=== PATIENT | male | born 1945 | race Caucasian/White ===

== ENCOUNTER → 2018-05-11 10:00 | Outpatient (CLI) | payer MEDICARE, OTHER, SELFPAY ==
[2018-05-11 10:35] LABS: Add Manual Diff / Slide Review NO; Eosinophils Percent Auto 2.1 % (2-4); Hemoglobin 14.4 g/dL (13.5-17.5); Lymphocytes Percent Auto 25.7 % (25-40); Mean Corpuscular HGB Conc 33.4 % (30-36); Mean Corpuscular Hemoglobin 29.6 PG (26-34); Mean Corpuscular Volume 88.7 fL (80-100); Monocytes Percent Auto 9.1 % (3-14); Neutrophils Absolute Auto 3500 /uL (3000-5900); Neutrophils Percent Auto 62.1 % (50-75); Platelet Count 249 X10^3/uL (150-400); Red Blood Cell Count 4.85 X10^6/uL (4.5-5.9); Red Cell Distribution Width 13.9 % (11.6-14.8); White Blood Cell Count 5.6 X10^3/uL (4.5-11.0)
[2018-05-11 10:49] LABS: Alanine Aminotransferase 40 IU/L (21-72); Albumin Globulin Ratio 1.3 (1.0-2.8); Alkaline Phosphatase 74 U/L (38-126); Aspartate Aminotransferase 38 IU/L (17-59); BUN Creatinine Ratio 17.1 (6-22); Bilirubin Total 0.5 mg/dL (0.2-1.3); Blood Urea Nitrogen 12 mg/dL (9-20); Calcium 8.9 mg/dL (8.4-10.2); Carbon Dioxide 32 mmol/L (22-32); Chloride 102 mmol/L (98-107); Cholesterol 171 mg/dL (140-199); Estimated Glomerular Filt Rate > 60.0 mL/min (>60); Globulin 3.1 g/dL (1.7-4.1); Glucose 99 mg/dL (80-110); HDL Cholesterol 58 mg/dL (40-60); HEMOLYSIS < 15 (0-50); LDL Cholesterol Calculated 93 mg/dL (<100); Potassium 4.6 mmol/L (3.4-5.1); Sodium 143 mmol/L (137-145); Total Protein 7.1 g/dL (6.3-8.2); Triglycerides 101 mg/dL (35-150)
[2018-05-11 11:18] LABS: Prostate Specific Antigen Scrn 3.41 ng/mL (0.1-4.0)
[2018-05-11 11:28] LABS: Thyroid Stimulating Hormone 1.04 uIU/mL (0.47-4.68)
== END ==
PROVIDERS: PCP Family Medicine; Visit Provider Family Medicine
DX: Z13.220 Encounter for screening for lipoid disorders (principal); Z12.5 Encounter for screening for malignant neoplasm of prostate
CPT/HCPCS: 36415; 80053; 80061; 84443; 85025; G0103

== ENCOUNTER → 2019-02-20 11:32 | Outpatient (CLI) | payer MEDICARE, OTHER, SELFPAY ==
[2019-02-20 13:36] LABS: BUN Creatinine Ratio 13.3 (6-22); Blood Urea Nitrogen 12 mg/dL (9-20); Calcium 9.9 mg/dL (8.4-10.2); Carbon Dioxide 30 mmol/L (22-32); Chloride 97 mmol/L (98-107); Estimated Glomerular Filt Rate > 60.0 mL/min (>60); Glucose 112 mg/dL (80-110); HEMOLYSIS < 15 (0-50); Potassium 4.9 mmol/L (3.4-5.1); Sodium 140 mmol/L (137-145)
== END ==
PROVIDERS: PCP Family Medicine; Visit Provider Family Medicine
DX: I10 Essential (primary) hypertension (principal)
CPT/HCPCS: 36415; 80048

== ENCOUNTER 2019-09-03 10:37 | Day surgery (SDC) | payer MEDICARE, OTHER, SELFPAY ==
[2019-08-29 15:16] VITALS: BMI 27.1
[2019-09-03] VITALS (11 sets, daily range): BP systolic 127–191; BP diastolic 71–99; PULSE 65–83; RESP 12–19; TEMP 36.3–36.8; O2SAT 94–97; BMI 27.1
--- NOTE | 2019-09-03 11:23 | PM.PREOP ---
Pre-operative Note Interval Note History & Physical reviewed/Exam performed by Physician: Yes Changes to H&P: No
[2019-09-03] MEDS: LACTATED RINGERS 1,000 ML 100 ML IV (11:34)
[2019-09-03] MEDS: CEFAZOLIN 2 GM/100 ML FROZ.PIGGY IV (11:44)
--- NOTE | 2019-09-03 12:11 | SUR.OPER ---
Supine on padded OR bed, head on pillow, arm padded and tucked at side, legs uncrossed, safety belt at thigh, tape over blanket over lower legs .
[2019-09-03] MEDS: BUPIVACAINE 0.25% (PF) VIAL 30 ML INJ (12:17)
--- NOTE | 2019-09-03 13:17 | PM.OP.1 ---
Operative Date/Time/Diagnoses Date of procedure: 09/03/19 Time of procedure: 13:17 Pre-op diagnosis: Recurrent right inguinal hernia Post-op diagnosis: same Procedure & Clinicians Procedure: Recurrent right laparoscopic inguinal hernia repair with mesh Same procedure as scheduled: Yes Indications: 74-year-old male with 2 previous open right inguinal hernia repairs presents with a recurrent right inguinal hernia. He elects for a laparoscopic right inguinal hernia repair with mesh. Surgeon: Clifton Correia Click Yes if Unassisted: Yes Anesthesia Type: General Operative Notes Findings: Right direct and indirect hernias Specimen(s): none sent Estimated Blood Loss (mL): 10 Procedure in detail: The patient was brought to the operating room and placed supine on the table. Bilateral sequential compression devices were applied. General anesthesia was induced and they were intubated with an endotracheal tube. They received 2 g acef prior to skin incision. They were prepped and draped in sterile fashion. A time out was performed to ensure the correct patient, procedure and necessary equipment within the operating room. The skin was infiltrated with 0.25% bupivicaine. A 1 cm supraumbilical midline incision was made. The umbilical stalk was elevated the fascia sharply incised and the abdomen entered traumatically. A 10mm balloon port was placed and pneumoperitoneum was established at 15mm Hg. Insepction of the abdomen demonstrated no evidence of injury upon entry. Two 5 mm ports were then placed under direct visualization in the right and left lower quadrant lateral to the rectus muscle. A right direct and indirect hernia were observed. The peritoneum 3 cm superior to the myopectineal orifice between the medial umbilical ligament and the anterior superior iliac spine was incised. The peritoneal flap was retracted and the preperitoneal tissue was dissected off the flap. This was continued until a cylinder of peritoneal tissue comprising the hernia sac extending into the inguinal canal was identified and sac reduced back into the peritoneal cavity. The vas deferens and spermatic vessels were identified protected. The peritoneum was dissected off the the spermatic vessels and fully exposed to the point where the vas deferens intersects with the medial umbilical ligament. The direct defect containing preperitoneal fat was reduced A Bard 3D Max mesh was then placed into the abdomen and positioned such that the myopectineal orifice was completely covered with good overlap on all sides. The mesh was anchored to the pubic tubercle and to Maulik?s ligament. The peritoneal flap was then repositioned back to its original position and tacks were used to anchor it in position such that no bowel could herniate into the preperitoneal space. The area was examined for hemostasis. No obvious left inguinal hernia was observed The 5mm trocars were removed under direct visualization and pneumoperitoneum was deflated through the umbilical trocar, The fascia at the umbilicus was closed with 0-Vicryl in figure of 8 fashion, skin closed with 4-0 Monocyl followed by Dermabond. The sponge and instrument count at the end of the case was correct. Both testicles were entirely within the scrotum at the end of the case. The patient emerged from anesthsia was extubated and transferred to recovery in stable condition.
[2019-09-03] MEDS: HYDROMORPHONE 2 MG INJ 0.5 MG IV (13:21)
--- NOTE | 2019-09-03 13:33 | SUR.PHASEI ---
Discussed pain control and methods of managing/preventing constipation; states that he doesn't want narcotics to cause constipation; plans to eat prunes. Applesauce given (denies nausea or light headedness).
[2019-09-03] MEDS: OXYCODONE/ACETAMINOPHEN 5/325 TABLET 1 TAB PO ×2 (13:43→14:22)
--- NOTE | 2019-09-03 13:46 | SUR.PHASEI ---
Dr. Correia spoke with patient. Oral Rx given after applesauce. Patient hesitant to take Rx; discussed need for pain control and to limit lifting weight.
--- NOTE | 2019-09-03 14:31 | SUR.PHASEII ---
Pt feels ready to go home, unable to reach ride (who had planned to return at 3:30)
--- NOTE | 2019-09-03 15:50 | SUR.PHASEII ---
1530 Pt taken to pharmacy in wheelchair to obtain medications. 1542 To car in wheelchair, home w/friend. Has belongings, meds, and ice pack. Repeatedly voices appreciation for care. Oriented, alert, Skin warm and dry, resp unlabored. Sites CDI
== END 2019-09-03 15:42 | disposition home or self-care (01) ==
PROVIDERS: Family Provider Family Medicine; PCP Family Medicine; Visit Provider Surgery
PROC: 0YQ54ZZ Repair Right Inguinal Region, Percutaneous Endoscopic Approach (ICD-10-PCS; CPT 49651; principal; 2019-09-03 12:15)
DX: K40.91 Unilateral inguinal hernia, without obstruction or gangrene, recurrent (principal)
CPT/HCPCS: 49651; C1781; J0360; J0690; J1100; J1170; J1885; J2250; J2405; J2704; J3010

== ENCOUNTER → 2020-02-07 08:45 | Outpatient (CLI) | payer MEDICARE, OTHER, SELFPAY ==
--- NOTE | 2020-02-07 08:50 | DI.CT.S_ITS ---
PROCEDURE: CT ABDOMEN PELVIS W CON INDICATIONS: Right groin pain hx of hernia repair TECHNIQUE: After the administration of oral and intravenous contrast, 5 mm thick sections acquired from the diaphragms to the symphysis. 5 mm thick coronal and sagittal reformats were performed. For radiation dose reduction, the following was used: automated exposure control, adjustment of mA and/or kV according to patient size. COMPARISON: None. FINDINGS: Image quality: Excellent. ABDOMEN: Lung bases: Lung bases are clear. Heart size is normal. Solid organs: Liver is normal in size and enhancement. Gallbladder appears normal. Biliary system is non-dilated. Pancreas enhances normally. Spleen is normal in size and enhancement. No adrenal nodules. Kidneys are normal in size and enhancement, without hydronephrosis. Peritoneum and bowel: Stomach, small bowel, and colon loops are normal in caliber and wall thickness. No free fluid or air. Nodes and vessels: No retroperitoneal or mesenteric adenopathy. Aorta and inferior vena cava are normal in caliber. Miscellaneous: No ventral hernias. PELVIS: Genitourinary: Bladder wall thickness is normal. Miscellaneous: No inguinal hernias or adenopathy. At the right lower quadrant at the internal os of the right inguinal canal there is expected postsurgical change and no evidence of inflammation/abscess formation. Incidental note is made of small bilateral hydroceles above the testicles bilaterally, measuring 3.1 x 2.8 cm on the right and 3.0 x 2.6 cm on the left. Bones: No suspicious bony lesions. No vertebral body compression fractures. IMPRESSION: Expected postsurgical change after right herniorrhaphy, no evidence of operative complication/abscess formation or other inflammatory process in this area. No recurrent hernia found, no sign of coincidental inflammation within the pelvis. Bilateral small hydroceles located above the testicles bilaterally, without adjacent inflammation. Dictated by: Dmitriy Ackerman M.D. on 02/07/2020 at 12:56 Approved by: Dmitriy Ackerman M.D. on 02/07/2020 at 13:00
[2020-02-07 09:13] LABS: BUN Creatinine Ratio 18.7 (6-22); Blood Urea Nitrogen 17 mg/dL (9-20); Estimated Glomerular Filt Rate > 60.0 mL/min (>60)
== END ==
PROVIDERS: Family Provider Family Medicine; PCP Family Medicine; Referring Provider Surgery; Visit Provider Surgery
DX: R10.31 Right lower quadrant pain (principal); N43.3 Hydrocele, unspecified; Z98.890 Other specified postprocedural states
CPT/HCPCS: 36415; 74177; 82565; 84520; Q9967

== ENCOUNTER 2020-11-30 18:16 | Emergency (ER) | payer MEDICARE, OTHER, SELFPAY ==
[2020-11-30 18:48] VITALS: BP 220/100; PULSE 66; RESP 16; TEMP 36.3; O2SAT 94; BMI 28.6
--- NOTE | 2020-11-30 20:30 | PC.NURSE ---
Patient reports high blood pressure readings at home. States has been out of his propanolol for 3 weeks and comes to ED seeking refill on medication. Reports slight headache 2/, states this is not acute finding. Denies dizziness, chest pain, blurred vision, nausea, or vomiting.
[2020-11-30 20:32] VITALS: BP 209/97; PULSE 60; RESP 18; O2SAT 97
--- NOTE | 2020-11-30 20:40 | ED.GENADULT ---
HPI - General Adult General Chief complaint: Hypertension Stated complaint: Elevated Blood Pressure Time Seen by Provider: 11/30/20 20:12 Source: patient Mode of arrival: Ambulatory Limitations: no limitations History of Present Illness HPI narrative: Patient is a 75-year-old male. Known history of hypertension. Here for refill of his blood pressure medications. Denies chest pain, shortness of breath, headaches, vision changes. Related Data Home Medications Medication Instructions Recorded Confirmed saw palmetto 500 mg capsule 900 mg PO DAILY 11/21/18 02/05/20 turmeric root extract 500 mg 1,000 mg PO BID 11/21/18 02/05/20 capsule metoprolol tartrate 25 mg PO DAILY 08/29/19 02/05/20 Previous Rx's Medication Instructions Recorded hydrochlorothiazide 12.5 mg tablet 12.5 mg PO DAILY #30 tab 01/25/19 acetaminophen [Tylenol] 650 mg PO QID PRN #60 cap 09/03/19 docusate sodium [Colace] 100 mg PO BID #60 cap 09/03/19 ibuprofen 800 mg PO Q6H PRN #60 tab 09/03/19 oxycodone 5 mg PO Q6H PRN #20 tab 09/03/19 metoprolol tartrate 25 mg PO DAILY #30 tab 11/30/20 metoprolol tartrate 25 mg PO DAILY 30 Days tab 11/30/20 Allergies Allergy/AdvReac Type Severity Reaction Status Date / Time adhesive tape [ADHESIVE TAPE] Allergy Mild LOCAL Verified 02/05/20 13:56 SWELLING Tetracyclines [TETRACYCLINES] Allergy Unknown Verified 02/05/20 13:56 Review of Systems Constitutional Constitutional: Denies fever(s) and Denies headache(s) ENT Ears, Nose, Mouth, and Throat: Denies headache(s) Cardiovascular Cardiovascular: Denies chest pain and Denies dyspnea Respiratory Respiratory: Denies dyspnea Gastrointestinal Gastrointestinal: Denies abdominal pain Integumentary/Breasts Skin/Breast: Denies rash Neurologic Neurologic: Denies behavioral changes and Denies headache(s) Psychiatric Psychiatric: Denies behavioral changes Hematologic/Lymphatic Hematologic/Lymphatic: Denies easy bleeding and Denies easy bruising Patient History Medical History Headache, migraine Hypertension Surgical History H/O hernia repair History of inguinal hernia repair Family History Brother Substance abuse Sister Substance abuse Social History household members: friend(s) Smoking Status: Former smoker alcohol intake: never Smoking Status: Former smoker Substance Use Type: other Exam Initial Vital Signs Initial Vital Signs: Vital Signs Temperature 97.4 F L 11/30/20 18:48 Pulse Rate 66 11/30/20 18:48 Respiratory Rate 16 11/30/20 18:48 Blood Pressure 220/100 H 11/30/20 18:48 Pulse Oximetry 94 11/30/20 18:48 Const General: cooperative and comfortable Limitations: mental status not altered HENMT Head: normal to inspection and normocephalic Resp Effort & Inspection: normal respiratory effort Cardio Rate: regular rate Skin Rashes: no rashes Neuro General: patient alert, patient awake and patient oriented x3 Extrem General: normal to inspection Psych Appearance: grossly normal and well kempt Course Orders Ordered: Discontinued Medications Metoprolol Succinate (Metoprolol Er 25 Mg Tablet) 25 mg PO NOW ONE Stop: 11/30/20 20:47 Last Admin: 11/30/20 21:01 Dose: 25 mg Documented by: PAMELA Vital Signs Vital signs: Vital Signs - 8 hr 11/30/20 18:48 11/30/20 20:32 Temperature 97.4 F L Pulse Rate 66 60 Respiratory Rate 16 18 Blood Pressure 220/100 H 209/97 H Pulse Oximetry 94 97 Medical Decision Making [facility] Narrative Medical decision making narrative: Patient states he is here strictly for refill of his blood pressure medicine. Initially states that his medicine was propanolol. He thought that was either 20 or 30 mg. He states that he only takes it once a day. Review of his medication list shows that the beta-chuy that he is on is metoprolol. Review of his prior primary doctor's notes shows that he has been prescribed metoprolol. I went back in and talk with him about this and he then stated that he thought that metoprolol was correct. Given the time of day and given his presenting blood pressure he was given a dose of metoprolol here in the ER. A prescription was electronically transmitted to the pharmacy of his choice. He was given return precautions and follow-up instructions. I feel that we can hold on further workup for now. Was given return precautions. Expressed understanding and agreement. Discharge Plan Departure Patient Disposition: Home Clinical Impression: Hypertension, Medication refill Instructions: DI for High Blood Pressure Activity Restrictions/Additional Instructions: A prescription for metoprolol was electronically [facility] to [facility]. Continue to take all of your medications as directed. Contact your primary provider for follow-up. Return to the emergency department for any new or worsening symptoms Prescriptions: New metoprolol tartrate 25 mg tablet 25 mg PO DAILY 30 Days RF: 1 metoprolol tartrate 25 mg tablet 25 mg PO DAILY Qty: 30 RF: 0 No Action hydrochlorothiazide 12.5 mg tablet 12.5 mg PO DAILY Qty: 30 RF: 5 turmeric root extract 500 mg capsule 1,000 mg PO BID RF: 0 saw palmetto 500 mg capsule 900 mg PO DAILY RF: 0 metoprolol tartrate 25 mg tablet 25 mg PO DAILY RF: 0 ibuprofen 200 mg tablet 800 mg PO Q6H PRN (Reason: pain) Qty: 60 RF: 0 docusate sodium [Colace] 100 mg capsule 100 mg PO BID Qty: 60 RF: 0 oxycodone 5 mg tablet 5 mg PO Q6H PRN (Reason: pain) Qty: 20 RF: 0 acetaminophen [Tylenol] 325 mg capsule 650 mg PO QID PRN (Reason: pain) Qty: 60 RF: 0 Referrals: Anne Gonzales DO [Primary Care Provider] -
[2020-11-30] MEDS: METOPROLOL ER 25 MG TABLET PO (21:01)
== END 2020-11-30 21:00 | disposition home or self-care (01) ==
PROVIDERS: Emergency Provider Emergency Medicine; Family Provider Family Medicine; PCP Family Medicine
DX: I10 Essential (primary) hypertension (principal); Z76.0 Encounter for issue of repeat prescription
CPT/HCPCS: 99281; 99283

== ENCOUNTER → 2021-12-13 15:23 | Outpatient (CLI) | payer MEDICARE, OTHER, SELFPAY ==
[2021-12-13 17:34] LABS: Alanine Aminotransferase 29 IU/L (<50); Albumin 4.5 g/dL (3.5-5.0); Albumin Globulin Ratio 1.5 (1.0-2.8); Alkaline Phosphatase 96 U/L (38-126); Aspartate Aminotransferase 40 IU/L (17-59); BUN Creatinine Ratio 16.4 (6-22); Bilirubin Total 1.1 mg/dL (0.2-1.3); Blood Urea Nitrogen 12 mg/dL (9-20); Calcium 9.6 mg/dL (8.4-10.2); Carbon Dioxide 26 mmol/L (22-32); Chloride 104 mmol/L (98-107); Cholesterol 183 mg/dL (140-199); Estimated Glomerular Filt Rate > 60.0 mL/min (>60); Globulin 3.1 g/dL (1.7-4.1); Glucose 106 mg/dL (80-110); HDL Cholesterol 47 mg/dL (40-60); HEMOLYSIS 28 (0-50); LDL Cholesterol Calculated 113 mg/dL (<100); Potassium 4.3 mmol/L (3.4-5.1); Sodium 137 mmol/L (137-145); Total Protein 7.6 g/dL (6.3-8.2); Triglycerides 114 mg/dL (35-150)
== END ==
PROVIDERS: Family Provider Family Medicine; PCP Family Medicine; Referring Provider Family Medicine; Visit Provider Family Medicine
DX: E78.2 Mixed hyperlipidemia (principal); I10 Essential (primary) hypertension
CPT/HCPCS: 36415; 80053; 80061